=== PATIENT | female | born 1955 | race Caucasian/White ===

== ENCOUNTER 2017-04-16 09:31 | Emergency (ER) | payer OTHER ==
[~2017-04-16] VITALS: Ht 154.9 cm; Wt 47.4 kg
[~2017-04-16 09:31] MED LIST: ARMO120T PO; BUPR150T PO; BUPR300T PO; CEPH500 PO; DIFL150T PO; ENAL10TA7 PO; ESTR1 PO; [UNRECOGNIZED DRUG - CODE] PO
[2017-04-16 09:33] VITALS: BP 138/89; PULSE 84; RESP 18; TEMP 98.1; O2SAT 98
[2017-04-16] MEDS ORDERED: BUSP30TA PO (09:50)
[2017-04-16] MEDS ORDERED: ENAL10TA PO (09:50)
[2017-04-16] MEDS ORDERED: MEDR2.5T4 PO (09:50)
[2017-04-16] MEDS ORDERED: ARMO120T PO (09:50)
[2017-04-16] MEDS ORDERED: ESTR1TAB PO (09:50)
[2017-04-16] MEDS ORDERED: CLON1TAB PO (09:50)
[2017-04-16] MEDS ORDERED: ROBA750T PO (09:56)
[2017-04-16] MEDS ORDERED: PRED20 PO (09:56)
--- NOTE | 2017-04-16 09:56 | PD ---
HPI Chief Complaint: Pain: Acute or Chronic Time Seen by Provider: 09:41 Travel History International Travel<30 days: No Contact w/Intl Traveler<30days: No Traveled to known affect area: No History of Present Illness HPI 61-year-old female complains of right shoulder pain. Patient states that the pain started about 6 months ago. Patient has been seen by a local physician and awaiting orthopedist appointment. Patient was on opioid medication before and recently on Flexeril, Motrin. Patient denies any new injury. Patient had MRI of the right shoulder recently which shows bursitis and tendon injury. Patient denies any fever chills. On a scale of 1-10 the pain is a 7. PFSH Past Medical History Anemia: Yes Blood Disorders: No Anxiety: Yes Depression: Yes Cancer: No Cardiovascular Problems: Yes Chest Pain: Yes Diabetes: No Endocrine: Yes Glaucoma: No Genitourinary: No Hepatitis: No Hiatal Hernia: No Hypertension: Yes Immune Disorder: No Implanted Vascular Access Dvce: Yes Medical other: No Musculoskeletal: Yes Neurologic: No Psychiatric: Yes Reproductive: No Respiratory: No Migraines: Yes Thyroid Disease: Yes ?: Not Menopausal: Yes Past Surgical History Abdominal Surgery: Yes (SPLEENECTOMY) Body Medical Devices: 3 implanted teeth Section: Yes Genitourinary Surgery: Yes (LAPAROSCOPY) Gynecologic Surgery: Yes Pacemaker: No Tonsillectomy: Yes Other Surgery: Yes (spleenectomy s/p trauma 05/22) Social History Alcohol Use: Yes (daily) Tobacco Use: Yes (08/19 ppd) Substance Use: Yes (marijuana to help sleep) Allergies-Medications (Allergen,Severity, Reaction): Coded Allergies: diclofenac (Unverified Allergy, Mild, SWELLING TO THROAT, 04/16/17) etodolac (Unverified Allergy, Mild, SWELLING TO THROAT, 04/16/17) flurbiprofen (Unverified Allergy, Mild, SWELLING TO THROAT, 04/16/17) ibuprofen (Unverified Allergy, Mild, SWELLING TO THROAT, 04/16/17) indomethacin (Unverified Allergy, Mild, SWELLING TO THROAT, 04/16/17) ketoprofen (Unverified Allergy, Mild, SWELLING TO THROAT, 04/16/17) ketorolac (Unverified Allergy, Mild, SWELLING TO THROAT, 04/16/17) latex (Unverified Allergy, Mild, HIVES, 04/16/17) metoclopramide (Unverified Allergy, Mild, ANXIETY, 04/16/17) naproxen (Unverified Allergy, Mild, SWELLING TO THROAT, 04/16/17) oxaprozin (Unverified Allergy, Mild, SWELLING TO THROAT, 04/16/17) Reported Meds & Prescriptions Reported Meds & Active Scripts Active Reported Clonazepam 1 Mg Tab 1 Mg PO BID Medroxyprogesterone Acetate 2.5 Mg Tablet 1 Tab PO DAILY Estradiol 1 Mg Tab 1 Mg PO DAILY Buspirone (Buspirone HCl) 30 Mg Tab 300 Mg PO DAILY Enalapril (Enalapril Maleate) 10 Mg Tab 10 Mg PO BID [place] Thyroid (Thyroid) 120 Mg Tab 120 Mg PO DAILY Review of Systems General / Constitutional: No: Fever Eyes: No: Visual changes HENT: No: Headaches Cardiovascular: No: Chest Pain or Discomfort Respiratory: No: Shortness of Breath Gastrointestinal: No: Abdominal Pain Genitourinary: No: Dysuria Musculoskeletal: Positive: Pain Skin: No Rash Neurologic: No: Weakness Psychiatric: No: Depression Endocrine: No: Polydipsia Hematologic/Lymphatic: No: Easy Bruising Physical Exam Narrative GENERAL: Well-nourished, well-developed patient. SKIN: Focused skin assessment warm/dry. HEAD: Normocephalic. EYES: No scleral icterus. No injection or drainage. NECK: Supple, trachea midline. No JVD or lymphadenopathy. CARDIOVASCULAR: Regular rate and rhythm without murmurs, gallops, or rubs. RESPIRATORY: Breath sounds equal bilaterally. No accessory muscle use. GASTROINTESTINAL: Abdomen soft, non-tender, nondistended. MUSCULOSKELETAL: No cyanosis, or edema. BACK: Nontender without obvious deformity. No CVA tenderness. Patient Has moderate diffuse tenderness with right shoulder joint. Limited range of motion the right shoulder secondary to pain. No redness no heat no swelling noted. Sensorimotor function distally intact. Data Data Last Documented VS Vital Signs Date Time Temp Pulse Resp B/P (MAP) Pulse Ox O2 Delivery O2 Flow Rate FiO2 04/16/17 09:33 98.1 84 18 138/89 (105) 98 MDM Medical Decision Making Medical Screen Exam Complete: Yes Emergency Medical Condition: Yes Differential Diagnosis Differential diagnosis including bursitis, tendon injury Narrative Course 61-year-old female with persistent right shoulder pain. MRI done recently shows tendon injury and bursitis. Patient states that she is allergic to all nonsteroidal anti-inflammatory medication. Diagnosis Primary Impression: Unspecified injury of unspecified muscle, fascia and tendon at shoulder and upper arm level, right arm, sequela Patient Instructions: General Instructions Additional Instructions: Stop Motrin and Flexeril. Robaxin and prednisone is directed. Follow-up with orthopedist. Med/Other Pt SpecificInfo: Prescription(s) given Scripts Methocarbamol (Robaxin) 750 Mg Tab 750 MG PO QID for Muscle Spasm, #60 TAB 0 Refills Prov: Norbert Phelps MD 04/16/17 Prednisone (Prednisone) 20 Mg Tab 20 MG PO DAILY, #10 TAB 0 Refills Prov: Norbert Phelps MD 04/16/17 Disposition: 01 DISCHARGE HOME Condition: Stable Norbert Phelps MD Apr 16, 2017 09:56
== END 2017-04-16 10:08 | disposition home or self-care (01) ==
LOC: PHED 09:31
DX: S46.90 Unspecified injury of unspecified muscle, fascia and tendon at shoulder and upper arm level (principal); I10 Essential (primary) hypertension; E07.9 Disorder of thyroid, unspecified; F17.200 Nicotine dependence, unspecified, uncomplicated; Z86.2 Personal history of diseases of the blood and blood-forming organs and certain disorders involving the immune mechanism; Z86.59 Personal history of other mental and behavioral disorders; Z86.79 Personal history of other diseases of the circulatory system; Z87.39 Personal history of other diseases of the musculoskeletal system and connective tissue; Z86.69 Personal history of other diseases of the nervous system and sense organs; X58.XXXS Exposure to other specified factors, sequela
CPT/HCPCS: 99284